=== PATIENT | female | born 1955 | race Caucasian/White ===

== ENCOUNTER 2017-03-04 17:30 | Emergency (ER) | payer OTHER ==
[~2017-03-04] VITALS: Ht 170.2 cm; Wt 92.1 kg
[~2017-03-04 17:30] MED LIST: BETH25TA PO; MMW SWISH-SPIT; XANA0.5T PO; ZEGE20CA4 PO; [UNRECOGNIZED DRUG - CODE] PO
[2017-03-04 17:46] VITALS: BP 149/72; PULSE 70; RESP 16; TEMP 98; O2SAT 99
[2017-03-04 21:05] VITALS: BP 158/94; PULSE 63; RESP 18; O2SAT 100
[2017-03-04] MEDS ORDERED: ALPR0.5T3 PO (21:08)
[2017-03-04] MEDS ORDERED: ONDA8TAB7 PO (21:09)
[2017-03-04] MEDS ORDERED: KETO0.02 EACH EYE (21:11)
[2017-03-04] MEDS ORDERED: ACEB200C PO (21:11)
--- NOTE | 2017-03-04 21:15 | PD ---
HPI Chief Complaint: Edema Time Seen by Provider: 21:13 Travel History International Travel<30 days: No Contact w/Intl Traveler<30days: No Traveled to known affect area: No History of Present Illness HPI 61 year-old female presents to the emergency department for complaint of new swelling and bruising to the left lower extremity. Patient states she called her facility manager's office and encouraged to come to the hospital have an ultrasound performed to evaluate her for DVT. Patient denies any long distance travel protracted bedrest her surgical procedure. Patient denies any clotting disorder by history. Patient takes no blood thinning agents. Patient's had no pleuritic chest pain chest pain shortness of breath or hemoptysis. Patient states she did contuse her left lower leg with a past several weeks and had a large knot on the anterior schmid that has slowly decreased in size. Patient denies other injury. Patient denies any claudication symptoms. Patient is followed by facility manager for history of rhythm disturbance. Patient did notice increased palpitations today. PFSH Past Medical History Narrative Medical Asthma uterine cancer ventricular ectopy high cholesterol fibromyalgia anxiety; no tobacco use: Nursing notes reviewed Asthma: Yes ("ONLY WITH BRONCHITIS") Blood Disorders: No Heart Rhythm Problems: Yes (VENTRICULAR ARRYTHMIA) Cancer: Yes (UTERINE 2009) Cardiac Catheterization: No Cardiovascular Problems: Yes High Cholesterol: Yes Congestive Heart Failure: No Diabetes: No Diminished Hearing: No Endocrine: Yes Fibromyalgia: Yes Gastrointestinal Disorders: Yes (GASTROPARESIS) GERD: Yes Glaucoma: No Genitourinary: Yes (HX URETHRAL STRICTURE) Hepatitis: No Hiatal Hernia: No Hypertension: No Immune Disorder: Yes (FIBROMYALGIA) Implanted Vascular Access Dvce: No Musculoskeletal: Yes (DDD, SCOLIOSIS) Neurologic: Yes Psychiatric: No Reproductive: No Respiratory: Yes (SLEEP APNEA, LUNG NODULES) Migraines: Yes Myocardial Infarction: No Pneumonia: Yes Shingles: Yes Sleep Apnea: Yes Thyroid Disease: Yes (NODULES) ?: Not Menopausal: Yes : 1 : 1 Dilation and Curettage (D&C): Yes Past Surgical History Coronary Artery Bypass Graft: No Genitourinary Surgery: Yes (08/10 D&C ABLATION; HYSTEROSCOPY ) Gynecologic Surgery: Yes (HYSTERECTOMY FOR UTERINE CA) Hysterectomy: Yes Oral Surgery: Yes (T & A/ EXTRACT. WISDOM TEETH) Tonsillectomy: Yes Other Surgery: Yes (LUMPS REMOVED FROM R BREAST) Social History Alcohol Use: Yes (SELDOM) Tobacco Use: No Substance Use: No Allergies-Medications (Allergen,Severity, Reaction): Coded Allergies: Sulfa (Sulfonamide Antibiotics) (Unverified Allergy, Severe, PERIORAL LESIONS, 03/04/17) buspirone (Unverified Allergy, Severe, PSYCHOSIS, 03/04/17) butorphanol (Unverified Allergy, Severe, BECOMES COMBATIVE, 03/04/17) fluvastatin (Unverified Allergy, Severe, FLU SXS, 03/04/17) hydroxyzine (Unverified Allergy, Severe, BECOMES COMBATIVE, 03/04/17) ketorolac (Unverified Allergy, Severe, BURNING IN ARMS, METALIC TASTE IN MOUTH, 03/04/17) midazolam (Unverified Allergy, Severe, HYPOTENSIVIE CRISIS, ITCH, 03/04/17 ) morphine (Verified Allergy, Severe, n/v, 03/04/17) azithromycin (Unverified Allergy, Unknown, 03/04/17) Reported Meds & Prescriptions Reported Meds & Active Scripts Active Reported Acebutolol (Acebutolol HCl) 200 Mg Cap 200 Mg PO BID ZyrTEC Itchy Eye Opth Drops (Ketotifen Opth Drops) 0.025% Drops 1 Drop EACH EYE BID PRN Ondansetron (Ondansetron HCl) 8 Mg Tab 8 Mg PO TID Alprazolam 0.5 Mg Tab 0.5 Mg PO DAILY PRN Review of Systems Except as stated in HPI: all other systems reviewed are Neg Physical Exam Narrative GENERAL: Well-developed well-nourished female in no acute distress no respiratory distress SKIN: Warm and dry. HEAD: Normocephalic. EYES: No scleral icterus. No injection or drainage. NECK: Supple, trachea midline. No JVD or lymphadenopathy. CARDIOVASCULAR: Regular rate and rhythm without murmurs, gallops, or rubs. RESPIRATORY: Breath sounds equal bilaterally. No accessory muscle use. GASTROINTESTINAL: Abdomen soft, non-tender, nondistended. MUSCULOSKELETAL: No cyanosis, or edema. Attention left lower extremity soft tissue swelling to the anterior lower leg with minimal tenderness and no ecchymosis mild swelling of the left ankle with no tenderness and intact range of motion dorsalis pedis pulses 2+ to palpation with brisk capillary refill less than 2 seconds no erythema no pallor no increased warmth or coolness of the limb proximally femoral pulses 2+ to palpation. BACK: Nontender without obvious deformity. No CVA tenderness. Data Data Last Documented VS Vital Signs Date Time Temp Pulse Resp B/P (MAP) Pulse Ox O2 Delivery O2 Flow Rate FiO2 03/04/17 23:35 63 18 149/88 (108) 100 Room Air 03/04/17 17:46 98.0 Orders Orders Us Leg Venous Doppler (03/04/17 ) Complete Blood Count With Diff (03/04/17 21:13) Act Partial Throm Time (Ptt) (03/04/17 21:13) Prothrombin Time / Inr (Pt) (03/04/17 21:13) Basic Metabolic Panel (Bmp) (03/04/17 21:15) Magnesium (Mg) (03/04/17 21:15) Electrocardiogram (03/04/17 ) Troponin I (03/04/17 21:15) Ed Discharge Order (03/04/17 23:41) Labs Laboratory Tests Test 03/04/17 21:30 White Blood Count 7.8 TH/MM3 Red Blood Count 4.56 MIL/MM3 Hemoglobin 12.3 GM/DL Hematocrit 39.2 % Mean Corpuscular Volume 86.0 FL Mean Corpuscular Hemoglobin 27.0 PG Mean Corpuscular Hemoglobin Concent 31.4 % Red Cell Distribution Width 14.0 % Platelet Count 317 TH/MM3 Mean Platelet Volume 8.4 FL Neutrophils (%) (Auto) 65.2 % Lymphocytes (%) (Auto) 25.7 % Monocytes (%) (Auto) 7.2 % Eosinophils (%) (Auto) 1.1 % Basophils (%) (Auto) 0.8 % Neutrophils # (Auto) 5.0 TH/MM3 Lymphocytes # (Auto) 2.0 TH/MM3 Monocytes # (Auto) 0.6 TH/MM3 Eosinophils # (Auto) 0.1 TH/MM3 Basophils # (Auto) 0.1 TH/MM3 CBC Comment DIFF FINAL Differential Comment Prothrombin Time 10.7 SEC Prothromb Time International Ratio 1.0 RATIO Activated Partial Thromboplast Time 25.9 SEC Blood Urea Nitrogen 16 MG/DL Creatinine 0.92 MG/DL Random Glucose 86 MG/DL Calcium Level 9.4 MG/DL Magnesium Level 2.1 MG/DL Sodium Level 140 MEQ/L Potassium Level 3.8 MEQ/L Chloride Level 104 MEQ/L Carbon Dioxide Level 28.2 MEQ/L Anion Gap 8 MEQ/L Estimat Glomerular Filtration Rate 62 ML/MIN Troponin I LESS THAN 0.02 NG/ML MDM Medical Decision Making Medical Screen Exam Complete: Yes Emergency Medical Condition: Yes Medical Record Reviewed: Yes Interpretation(s) Last Impressions Lower Extremity Ultrasound 03/04/17 0000 Signed Impressions: Service Date/Time: Saturday, March 04, 2017 22:04 - CONCLUSION: Normal examination. Devante Cisneros MD EKG: Normal sinus rhythm rate [address] elevation or injury pattern or ectopy noted nonspecific RSR prime septally; study essentially unchanged from Vital Signs Date Time Temp Pulse Resp B/P (MAP) Pulse Ox O2 Delivery O2 Flow Rate FiO2 03/04/17 23:35 63 18 149/88 (108) 100 Room Air 03/04/17 22:05 60 18 155/88 (110) 99 Room Air 03/04/17 21:14 Room Air 03/04/17 21:05 63 18 158/94 (115) 100 Room Air 03/04/17 17:46 98.0 70 16 149/72 (97) 99 CBC & BMP Diagram 03/04/17 21:30 Calcium Level 9.4, Magnesium Level 2.1 Differential Diagnosis Contusion, DVT, coagulopathy, thrombocytopenia, anemia, arrhythmia Narrative Course Specimens collected and sent for resulting imaging studies ordered Diagnosis Primary Impression: Contusion of left lower leg Qualified Codes: S80.12XA - Contusion of left lower leg, initial encounter Referrals: Primary Care Physician call for appointment Patient Instructions: General Instructions Additional Instructions: Follow-up with your specialist May take as tolerated acetaminophen or ibuprofen per package directions Return to the emergency department for any concerns or change condition May benefit from intermittent elevation of the extremity Continue chronic medications as presently prescribed Med/Other Pt SpecificInfo: No Change to Meds Disposition: 01 DISCHARGE HOME Condition: Stable Anna Benitez MD Mar 04, 2017 21:15
[2017-03-04 21:45] LABS: BASOPHIL # 0.1 TH/MM3 (0-0.2); BASOPHIL % 0.8 % (0.0-2.0); EOSINOPHIL # 0.1 TH/MM3 (0-0.4); EOSINOPHIL % 1.1 % (0.0-4.0); HEMATOCRIT 39.2 % (35.0-46.0); HEMO FLAGS DIFF FINAL; LYMPH % 25.7 % (9.0-44.0); MEAN CORPUSCULAR HGB CONC 31.4 % (32.0-36.0); MONO % 7.2 % (0.0-8.0); NEUT % 65.2 % (16.0-70.0); PLATELET COUNT 317 TH/MM3 (150-450); RED BLOOD COUNT 4.56 MIL/MM3 (4.00-5.30); WHITE BLOOD COUNT 7.8 TH/MM3 (4.0-11.0)
[2017-03-04 21:47] LABS: CHLORIDE 104 MEQ/L (98-107); POTASSIUM 3.8 MEQ/L (3.5-5.1); SODIUM (NA) 140 MEQ/L (136-145)
[2017-03-04 21:51] LABS: ANION GAP 8 MEQ/L (5-15); BICARBONATE 28.2 MEQ/L (21.0-32.0); MAGNESIUM 2.1 MG/DL (1.5-2.5)
[2017-03-04 21:52] LABS: APTT (PATIENT) 25.9 SEC (24.3-30.1); BLOOD UREA NITROGEN 16 MG/DL (7-18); PROTHROMBIN TIME - PATIENT 10.7 SEC (9.8-11.6)
[2017-03-04 21:55] LABS: GLOMERULAR FILTRATION RATE 62 ML/MIN (>89)
[2017-03-04 22:05] VITALS: BP 155/88; PULSE 60; RESP 18; O2SAT 99
--- NOTE | 2017-03-04 22:41 | RADRPT ---
EXAM DATE/TIME: 03/04/2017 22:04 [facility] COMPARISON: No previous studies available for comparison. INDICATIONS : Left leg pain. MEDICAL HISTORY : Hypercholesterolemia. Gastroparesis. Thyroid nodules. Migraines. Numbness. Ventricular arrythmia. Sleep apnea. Lung nodules. Bronchitis. Asthma. Pneumonia. GERD. Uterine cancer. Urethral stricture. Fibromyalgia. Degenerative disc disease. Scoliosis. Panic attacks. Shingles. SURGICAL HISTORY : Tonsillectomy. Hysterectomy. Adenoidectomy. D&C. Lumpectomy, right breast. ENCOUNTER: Initial ACUITY: 1 day PAIN SCORE: 0/10 LOCATION: Left leg. TECHNIQUE: Venous ultrasound of the leg was performed from the inguinal ligament to the proximal calf. Real-eneida e, color Doppler and spectral tracing, compression and augmentation techniques were used. FINDINGS: There is normal compressibility of the deep venous system from the inguinal region to the proximal ca lf. No echogenic clot is seen in the lumen of the common femoral, femoral, popliteal, and posterior tibial veins. There is a normal response of the venous system to proximal and distal augmentation an d respiration. CONCLUSION: Normal examination. Devante Cisneros MD on March 04, 2017 at 22:39 Board Certified Radiologist. This report was verified electronically.
[2017-03-04 23:35] VITALS: BP 149/88; PULSE 63; RESP 18; O2SAT 100
--- NOTE | 2017-03-06 23:13 | EKG ---
Date Performed: 03/04/2017 Time Performed: 21:22:48 PTAGE: 61 years EKG: Sinus rhythm POSSIBLE RIGHT VENTRICULAR CONDUCTION DELAY BORDERLINE ECG PREVIOUS TRACING : 02/21/2015 16.29 Compared to prior tracing no significant change DOCTOR: Kelvin Virk Interpretating Date/Time 03/06/2017 23:13:08
== END 2017-03-05 00:01 | disposition home or self-care (01) ==
LOC: PHED 17:30
DX: S80.12XA Contusion of left lower leg, initial encounter (principal); R00.2 Palpitations; M79.662 Pain in left lower leg; R94.31 Abnormal electrocardiogram [ECG] [EKG]; E07.9 Disorder of thyroid, unspecified; E78.00 Pure hypercholesterolemia, unspecified; G47.30 Sleep apnea, unspecified; X58.XXXA Exposure to other specified factors, initial encounter; Z87.09 Personal history of other diseases of the respiratory system; Z86.79 Personal history of other diseases of the circulatory system; Z85.42 Personal history of malignant neoplasm of other parts of uterus; Z87.39 Personal history of other diseases of the musculoskeletal system and connective tissue; Z87.19 Personal history of other diseases of the digestive system; Z87.448 Personal history of other diseases of urinary system; Z86.69 Personal history of other diseases of the nervous system and sense organs
CPT/HCPCS: 80048; 83735; 84484; 85025; 85610; 85730; 93005; 93971